=== PATIENT | female | born 1945 | race Caucasian/White ===

== ENCOUNTER → 2016-10-05 | Outpatient (CLI) | payer OTHER ==
[~2016-10-05] MED LIST: ADULT LOW DOSE81 MG PO; ASPIRIN325 PO; CO Q-10100 MG PO; ELIQUIS5 MG PO; FISH OIL 1,001000 M2 PO; FISHOIL; FLOMAX PO; GLUCOPHAGE XR500 MG PO; HYDROCODONE-AP1 EAC6 PO; JANUVIA100 MG PO; LANTUS SOL100 UNIT/1 SUBQ; LEVOTHYROXIN0.025 MG PO; LISINOPRIL; LISINOPRIL2.5 M1 PO; LOPRESSOR25 PO; METFORMIN; NORCO 5-325 TA1 EACH PO; PRAVACHOL40 MG PO; PRAVASTATIN SOD40 MG PO; TOPROL XL25 MG PO; UNICOMPLEX M TA1 TA1 PO; ZOCOR; ZOFRAN 4 MG ORAL4 M1 DIS
== END ==
LOC: CAT 11:22
DX: R91.1 Solitary pulmonary nodule (principal)